=== PATIENT | female | born 1985 ===

== ENCOUNTER 2025-09-21 11:20 | Outpatient (REF) | payer BC, SELFPAY ==
[2025-09-21 14:19] LABS: MANUAL DIFF FLAG NO
[2025-09-21 14:28] LABS: Hematocrit 40.2 % (37.0-47.0); Hemoglobin 13.3 g/dl (12.0-16.0); Imm Gran Abs Auto 0.02 X10*3/uL (0.00-0.03); Imm Gran Pct Auto 0.3 % (0.0-0.4); Lymphocytes Absolute Auto 2.2 X10*3/uL (1.2-4.9); Mean Corpuscular HGB Conc 33.1 g/dl (31.0-35.0); Mean Corpuscular Hemoglobin 29.0 pg (27.0-33.0); Mean Corpuscular Volume 87.8 fL (80.0-98.0); NRBC Abs Auto 0.000 X10*3/uL (0.0-0.012); NRBC Pct Auto 0.0 /100WBC (0.0-0.2); Platelet Count 329 X10*3/uL (160-400); Red Blood Count 4.58 X10*6/uL (4.20-5.50); White Blood Count 6.5 X10*3/uL (4.8-10.8)
[2025-09-21 14:29] LABS: Appearance Urine Clear; Glucose Urine UA Negative (Negative); PH 5.5 (5.0-9.0); Specific Gravity - Urine 1.025 (1.005-1.025)
[2025-09-21 14:58] LABS: Microalbum/Creatinine Ratio Ur 3.3 ug/mg cr (<30)
[2025-09-21 15:11] LABS: Alanine Aminotransferase 25 U/L (0-31); Albumin Level 4.4 g/dL (3.5-5.0); Alkaline Phosphatase 48 U/L (39-117); Anion Gap 8 (12-20); Aspartate Amino Transferase 20 U/L (5-31); Blood Urea Nitrogen 12 mg/dL (9-16); Calcium 9.2 mg/dL (8.4-10.2); Carbon Dioxide 26 mmol/L (22-29); Chloride 110 mmol/L (96-108); Cholesterol 200 mg/dL (<200); Estimated Glomerular Filt Rate > 60; HDL Cholesterol 53 mg/dL (>40); Potassium 4.2 mmol/L (3.3-5.1); Sodium 140 mmol/L (135-145); Total Protein 6.9 g/dL (6.5-8.0); Triglycerides 100 mg/dL (<150)
== END 2025-09-21 11:21 | disposition home or self-care (01) ==
LOC: HO.WFDLDS 11:20
PROVIDERS: Visit Provider Physician Assistant
DX: R07.89 Other chest pain (principal); D50.9 Iron deficiency anemia, unspecified; R30.0 Dysuria
CPT/HCPCS: 36415; 80053; 80061; 81003; 82043; 82570; 84443; 85025; 93005; 96127

== ENCOUNTER 2025-09-21 11:20 | Outpatient (AMB) | payer OTHER, SELFPAY ==
--- NOTE | 2025-09-21 11:22 | A.OFFPC_ITS ---
Vital Signs 09/21/25 11:24 Height 5 ft 3.54 in Weight 224 lb 2 oz BMI 39.0 BP 114/84 Blood Pressure Location Rt brachial Position Sitting Respiration 14 Pulse 100 Pulse Source Pulse Oximeter Temp 98.9 F Temp Source Oral Pulse Oximetry (%) 97 Oxygen Delivery Method Room Air Intake Visit Reasons: Est. 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 Care HPI Details Pt is a 40 y.o female who presents today to [facility]. She has noted some rare chest discomfort which she thinks is heartburn. It is triggered by eating something spicy. She has not tried anything for it. Just does not want to overlook anything such as the heart. No difficulty swallowing. No fever or chills. No sob with this. No n/v. No palpitations, dizziness or exertional symptoms. She walks 20k steps a night and feels fine. She exercises and does mulugeta and has no problems. 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 1. Little interest or pleasure in doing things: not at all 2. Feeling down, depressed, or hopeless: not at all 3. Trouble falling or staying asleep, or sleeping too much: not at all 4. Feeling tired or having little energy: not at all 5. Poor appetite or overeating: not at all 6. Feeling bad about yourself - or that you are a failure or have let yourself or your family down: not at all 7. Trouble concentrating on things, such as reading the newspaper or watching television: not at all 8. Moving or speaking so slowly that other people could have noticed. Or the opposite - being so fidgety or restless that you have been moving around a lot more than usual: not at all 9. Thoughts that you would be better off or of hurting yourself in some way: not at all Total score: 0 Source: Developed by Drs. David Rubin, Vikki Mauricio, Shubham Song and colleagues, with an educational dena from [employer]. Thrive Questionnaire I am a: Patient What is your living situation today?: I have a steady place to live Within the past 12 months, did the food you bought not last and you didn't have the money to get more?: Never true Within the past 12 months, did you worry whether your food would run out before you got money to buy more?: Never true Do you have trouble paying for medicines?: Yes Do you have trouble getting transportation to medical appointments?: No Do you have trouble paying your heating and electricity bill?: Yes Do you have trouble taking care of your child, family member or friend?: No Do you have trouble with day-to-day activities such as bathing, preparing meals, shopping, managing finances, etc.?: No Are you currently unemployed and looking for a job?: No Are you interested in more education?: No Please select the resources that you would like help with: None Currently or been in a relationship where the following occur: No concerns reported THRIVE Score: 1 AUDIT C Alcohol Use Questionnaire (AUDIT-C) 1. How often do you have a drink containing alcohol?: Never Total Score: 0 DARON-7 AMB Questionnaire DARON-7 Feeling nervous, anxious, or on edge: 0 = Not at all Not being able to stop or control worryin = Several days Worrying too much about different things: 1 = Several days Trouble relaxin = Not at all Being so restless that it is hard to sit still: 0 = Not at all Becoming easily annoyed or irritable: 0 = Not at all Feeling afraid as if something awful might happen: 0 = Not at all Total DARON-7 score (0-4 normal; 5-9 mild; 10-14 moderate; 15-21 severe): 2 Source: Developed by Drs. David Rubin, Vikki Mauricio, Shubham Song and colleagues, with an educational dena from [employer]. Physical exam (Primary Care) Vital Signs: Last Vital Signs Temp 98.9 F 09/21/25 11:24 Pulse 100 09/21/25 11:24 Resp 14 09/21/25 11:24 BP 114/84 09/21/25 11:24 Pulse Ox 97 09/21/25 11:24 Oxygen Delivery Method Room Air 09/21/25 11:24 BMI result Body Mass Index 39.0 Tobacco/Smoking Status: Tobacco use Status Tobacco use date assessed 09/21/25 09/21/25 11:31 Patient Tobacco Use Status Never used Tobacco 09/21/25 11:31 e-Cigarette/Vaping Use Never Used 09/21/25 11:31 PHQ-9: PHQ-9 Score PHQ-9: Total score 0 09/21/25 11:24 Currently or been in a relationship where the following occur: No concerns reported Const Orientation/consciousness: patient oriented x3 HENMT Ears: hearing grossly normal bilaterally Neck Thyroid: Thyroid normal Lymphatic: no lymphadenopathy noted Resp Auscultation: clear to auscultation bilaterally Cardio Rate: regular rate Rhythm: regular rhythm Heart sounds: S1 normal heart sound present and S2 normal heart sound present GI Inspection: Yes normal to inspection Palpation (GI): Soft to palpation and Other GI palpation findings present (nontender, no cva tenderness) Auscultation: normoactive bowel sounds Rectal Exam - Female: deferred Skin General skin exam: no rashes or lesions noted Neuro General: patient oriented x3, gait normal and no focal motor deficits Office Procedures EKG Details: EKG today in the office is normal sinus rhythm at a rate of 79 beats per minute with nonspecific STT wave abnormalities. No prior study to compare. EKG interpreted myself. [id number], Complete Coding Level of Care Code New Pt Level 3 (19243) Complex visit Add On G2211 Diagnoses Atypical chest pain R07.89 USHA (iron deficiency anemia) D50.9 CPT Codes EKG - CPT: 95852-[id number], Complete ([id number]) Assessment & Plan Assessment & Plan (1) Atypical chest pain: Code(s): R07.89 - Other chest pain Category: Medical Plan: Labs ordered today. We will follow up pending test results EKG in office is normal sinus rhythm no prior study to compare Chest x-ray ordered She will let me know if symptoms come back or if anything changes. She is going to pay attention to the diet. (2) USHA (iron deficiency anemia): Code(s): D50.9 - Iron deficiency anemia, unspecified Category: Medical Plan: History of this. Donates blood every few months. We will check labs today Orders: Orders Microalbumin, Random (w Creat) Today D50.9 - Iron deficiency anemia, unspecified, R07.89 - Other chest pain Complete Blood Count Auto Diff Today D50.9 - Iron deficiency anemia, unspecified, R07.89 - Other chest pain Comprehensive [place]. Panel Fast Today D50.9 - Iron deficiency anemia, unspecified, R07.89 - Other chest pain Lipid Panel Today D50.9 - Iron deficiency anemia, unspecified, R07.89 - Other chest pain TSH reflex Free T4 Today D50.9 - Iron deficiency anemia, unspecified, R07.89 - Other chest pain UA CC w/rflx Micro + Cult Today D50.9 - Iron deficiency anemia, unspecified, R07.89 - Other chest pain, R30.0 - Dysuria XR chest 2V Today D50.9 - Iron deficiency anemia, unspecified, R07.89 - Other chest pain, Z13.6 - Encounter for screening for cardiovascular disorders AMB EKG-In Office Today D50.9 - Iron deficiency anemia, unspecified, R07.89 - Other chest pain, Z13.6 - Encounter for screening for cardiovascular disorders
[2025-09-21 11:24] VITALS: BP 114/84; PULSE 100; RESP 14; TEMP 37.2; O2SAT 97; BMI 39.0
== END 2025-09-21 11:58 | disposition home or self-care (01) ==
LOC: HO.HMCFM 11:21
PROVIDERS: Visit Provider Physician Assistant
DX: R07.89 Other chest pain (principal); D50.9 Iron deficiency anemia, unspecified